=== PATIENT | female | born 1955 | race Caucasian/White ===

== ENCOUNTER 2024-02-10 19:42 | Inpatient (IN) | payer MEDICARE ==
[~2024-02-10] VITALS: Ht 162.6 cm; Wt 55.6 kg
[2024-02-10] MEDS ORDERED: Vancomycin HCL 1,250 MG in NS 250 ML IV ONE (20:25)
[2024-02-10] MEDS ORDERED: FentaNYL Citrate 50 MCG/ML 2 ML Injection IV ONE (20:30)
[2024-02-10] MEDS ORDERED: NS 1,000 ML IV SCH ×3 (20:30→23:20)
[2024-02-10] MEDS ORDERED: Piperacillin/Tazobactam Sod 3.375 GM in NS 100 ML IV ONE (20:30)
[2024-02-10 20:36] LABS: BASOPHILS ABSOLUTE AUTO 0.22 K/mm3 (0.00-0.23); BASOPHILS PERCENT AUTO 0 % (0-2); EOSINOPHILS ABSOLUTE AUTO 0.05 K/mm3 (0.00-0.68); EOSINOPHILS PERCENT AUTO 0 % (0-6); Hematocrit 20.8 % (33.0-51.0); IMMATURE GRAN ABSOLUTE AUTO 1.76 K/mm3 (0.00-0.10); IMMATURE GRAN PERCENT AUTO 3 % (0-1); LYMPHOCYTES ABSOLUTE AUTO 1.27 K/mm3 (0.84-5.20); LYMPHOCYTES PERCENT AUTO 2 % (21-46); MONOCYTES PERCENT AUTO 3 % (4-13); Mean Corpuscular HGB 23.5 pg (26.0-34.0); Mean Corpuscular HGB Conc 27.9 g/dL (31.5-36.5); Mean Corpuscular Volume 84 fL (80-100); Mean Platelet Volume 9.6 fL (9.1-12.4); NEUTROPHILS ABSOLUTE AUTO 58.36 K/mm3 (1.96-9.15); NEUTROPHILS PERCENT AUTO 92 % (41-73); NRBC ABSOLUTE 0.33 K/mm3 (0.00-0.02); NRBC Auto 0.5 /100 WBC (0.0-0.2); Platelet Count 732 K/mm3 (150-400); RDW Coefficient Variation 19.8 % (11.7-14.2); Red Blood Cell Count 2.47 M/mm3 (3.80-5.20)
[2024-02-10 20:41] LABS: Magnesium, Blood 2.8 mg/dL (1.6-2.4)
[2024-02-10 20:47] LABS: Hemoglobin 5.8 g/dL (11.5-16.0); White Blood Cell Count 63.56 K/mm3 (4.00-11.30)
[2024-02-10 20:59] LABS: PCO2 Venous 39.2 mmHg (38-42); pH Blood Venous 7.35 (7.34-7.37)
[2024-02-10 21:00] LABS: Base Excess Venous -3.9 mmol/L; Bicarbonate Venous 21.4 mmol/L (24.0-30.0)
[2024-02-10 21:14] LABS: International Normalized Ratio 1.16; Prothrombin Time Results 12.3 Sec (9.7-11.5)
[2024-02-10] MEDS ORDERED: HYDROmorphone HCl/Pf 1MG SYR IV ONE (22:05)
[2024-02-10] MEDS ORDERED: Ondansetron HCl 2 MG / ML 2ML Vial IV PRN (23:20)
[2024-02-11] VITALS (11 sets, daily range): BP systolic 97–145; BP diastolic 57–98
[2024-02-11 00:17] LABS: Creatinine, Blood 2.55 mg/dL (0.40-1.00)
[2024-02-11] MEDS ORDERED: Morphine Sulfate 4 MG/1 ML Injection IV ONE (01:15)
--- NOTE | 2024-02-11 01:16 | NUR ---
CALLED DR. ASCENCIO FOR PAIN CONTROL PT IS RESTLESS IN BED AND COMPLAINS OF PAIN. ORDER RECEIVED MORPHINE IV 1-4MG X1 FOR PAIN.
[2024-02-11 01:40] LABS: IMMATURE RETIC FRACTION 40.7 % (2.3-16.0); RETIC HGB EQUIVALENT 16.9 pg (28.20-36.60); RETICULOCYTE ABSOLUTE 0.0501 M/mm3 (0.0200-0.1100); RETICULOCYTE COUNT PERCENT 2.14 % (0.50-2.50)
[2024-02-11 01:54] LABS: Percent Saturation 4.2 % (15.0-50.0)
[2024-02-11] MEDS ORDERED: NS 250 ML IV PRN (03:05)
[2024-02-11 03:13] LABS: Influenza A, PCR NEGATIVE (NEGATIVE); Influenza B, PCR NEGATIVE (NEGATIVE); Resp Syncytial Virus, PCR NEGATIVE (NEGATIVE); SARS-Cov-2 (COVID-19) PCR, MMC NEGATIVE (NEGATIVE)
--- NOTE | 2024-02-11 04:21 | NUR ---
RECEIVED PT FROM ED AT 0000 AND ASSUMED CARE. PT TRANSFERED TO BED FROM STRETCHER BY STAFF. PT ON 7L O2 BY NC. PT ARRIVED RESTLESS AND MOANING. SON AT BEDSIDE PROVIDING MOST OF THE HISTORY. PT AOX2, CONFUSED BUT ATTEMPTS TO BE COOPERATIVE. PT APPEARING IN PAIN AT THIS TIME. PT PLACED ON TELEMETRY AND APPEARS TO BE SINUS TACH. LARGE EXTERNAL MASS TO LEFT, ABD PAD PLACED AND WINDOW PANED CLOSED WITH MEDPORE TAPE. PURE-WICK PLACED, IV FLUIDS STARTED, ORAL CARE DONE, COVID SWAB COLLECTED. PT IS NPO AT THIS TIME.
[2024-02-11] MEDS ORDERED: Morphine Sulfate 4 MG/1 ML Injection IV PRN (04:55)
[2024-02-11] MEDS ORDERED: Piperacillin/Tazobactam Sod 4.5 GM in NS 100 ML IV SCH (06:00)
[2024-02-11 08:01] LABS: Hematocrit 25.8 % (33.0-51.0); Hemoglobin 7.4 g/dL (11.5-16.0); LYMPHOCYTES PERCENT AUTO 1 % (21-46); MONOCYTES PERCENT AUTO 3 % (4-13); Mean Corpuscular HGB 24.9 pg (26.0-34.0); Mean Corpuscular HGB Conc 28.7 g/dL (31.5-36.5); Mean Corpuscular Volume 87 fL (80-100); Mean Platelet Volume 9.6 fL (9.1-12.4); NRBC ABSOLUTE 0.34 K/mm3 (0.00-0.02); NRBC Auto 0.5 /100 WBC (0.0-0.2); Platelet Count 556 K/mm3 (150-400); RDW Standard Deviation 56.8 fL (35.1-46.3); Red Blood Cell Count 2.97 M/mm3 (3.80-5.20)
[2024-02-11 08:03] LABS: BASOPHILS ABSOLUTE AUTO 0.03 K/mm3 (0.00-0.23); BASOPHILS PERCENT AUTO 0 % (0-2); EOSINOPHILS ABSOLUTE AUTO 0.01 K/mm3 (0.00-0.68); EOSINOPHILS PERCENT AUTO 0 % (0-6); IMMATURE GRAN ABSOLUTE AUTO 2.25 K/mm3 (0.00-0.10); IMMATURE GRAN PERCENT AUTO 4 % (0-1); NEUTROPHILS PERCENT AUTO 92 % (41-73)
[2024-02-11 08:05] LABS: White Blood Cell Count 65.19 K/mm3 (4.00-11.30)
[2024-02-11 08:41] LABS: Alanine Aminotransfer (ALT/SGP 80 U/L (12-78); Albumin, Blood 1.6 g/dL (3.4-5.0); Albumin/Globulin Ratio 0.4 (0.8-1.8); Alk Phos 298 U/L (50-136); Anion Gap 19 mmol/L (3-11); Aspartate Aminotrans (AST/SGOT 102 U/L (12-37); Bilirubin, Total 0.8 mg/dL (0.1-1.0); Blood Urea Nitrogen 66 mg/dL (8-24); Bun/Creatinine Ratio 32.5 (12.0-20.0); CO2, Blood 17 mmol/L (21-32); Calcium, Blood 8.3 mg/dL (8.5-10.1); Chloride, Blood 111 mmol/L (98-108); Creatinine, Blood 2.03 mg/dL (0.40-1.00); Globulin, Blood 4.1 g/dL (2.2-4.0); Glomerular Filtration Rate 26 (60-); Glucose, Blood 105 mg/dL (70-99); Potassium, Blood 5.5 mmol/L (3.5-5.5); Sodium, Blood 141 mmol/L (136-145); Total Protein, Blood 5.7 g/dL (6.4-8.2); Vancomycin, Random 18.7 ug/mL
[2024-02-11] MEDS ORDERED: Vancomycin HCL 750 MG in NS 250 ML IV ONE (08:50)
[2024-02-11 08:52] LABS: BASOPHILS PERCENT MAN 0 % (0-2); EOSINOPHILS PERCENT MAN 0 % (0-6); LYMPHOCYTES ABSOLUTE MAN 0.65 K/mm3 (0.84-5.20); LYMPHOCYTES PERCENT MAN 1 % (21-46); MONOCYTES ABSOLUTE MAN 0.65 K/mm3 (0.16-1.47); MONOCYTES PERCENT MAN 1 % (4-13); NEUTROPHILS ABSOLUTE MAN 63.88 K/mm3 (1.96-9.15); SEG NEUTROPHILS PERCENT MAN 98 % (41-73); TOTAL CELLS COUNTED 100
[2024-02-11 14:49] LABS: Hematocrit 32.4 % (33.0-51.0); Hemoglobin 9.8 g/dL (11.5-16.0); Mean Corpuscular HGB 26.3 pg (26.0-34.0); Mean Corpuscular HGB Conc 30.2 g/dL (31.5-36.5); Mean Corpuscular Volume 87 fL (80-100); Mean Platelet Volume 9.3 fL (9.1-12.4); NRBC ABSOLUTE 0.38 K/mm3 (0.00-0.02); NRBC Auto 0.6 /100 WBC (0.0-0.2); Platelet Count 474 K/mm3 (150-400); RDW Coefficient Variation 17.4 % (11.7-14.2); RDW Standard Deviation 55.5 fL (35.1-46.3); Red Blood Cell Count 3.72 M/mm3 (3.80-5.20)
[2024-02-11 15:05] LABS: White Blood Cell Count 65.25 K/mm3 (4.00-11.30)
--- NOTE | 2024-02-11 16:03 | NUR ---
GOALS OF CARE MET WITH PT, HER SON OLIVIA, SISTER KIA AND DANIELLE OJEDA. PT IS A/O TO SELF, FAMILY, CONDITION AND LOCATION. SLOW TO RESPOND TO QUESTIONS. SHE IS PAINFULL INSPITE OF REPOSITIONING AND RX MANAGEMENT. LABORED BREATHING WITH 2-3 WORD DYSPNEA. ANXIETY NOTED. SHE WANTS TO REMOVE HER ARMBANDS AND PULLING AT THE CONT PULSE OX. PT AND FAMILY REQUEST STARTING COMFORT CARE UNTIL D/C ON HOSPICE. MSG LEFT FOR DR. BERNSTEIN PRIMARY RN AND NEW HOME SALES CONSULTANT UPDATED. PC RNARNIE WILL F/U WITH PROVIDER FOR ORDERS.
[2024-02-11 16:17] LABS: BAND PERCENT MAN 21 % (0-8); BASOPHILS PERCENT MAN 0 % (0-2); EOSINOPHILS PERCENT MAN 0 % (0-6); LYMPHOCYTES ABSOLUTE MAN 0.65 K/mm3 (0.84-5.20); LYMPHOCYTES PERCENT MAN 1 % (21-46); MONOCYTES ABSOLUTE MAN 2.61 K/mm3 (0.16-1.47); MONOCYTES PERCENT MAN 4 % (4-13); MYELOCYTE PERCENT MAN 2 % (0-0); NEUTROPHILS ABSOLUTE MAN 60.68 K/mm3 (1.96-9.15); SEG NEUTROPHILS PERCENT MAN 72 % (41-73); TOTAL CELLS COUNTED 100
[2024-02-11] MEDS ORDERED: Atropine Sulfate 1% Opth Soln 2ML BTL SL PRN (16:20)
[2024-02-11] MEDS ORDERED: LORazepam 2 MG/ML 1ML Injection IV PRN (16:20)
[2024-02-11] MEDS ORDERED: Morphine Sulfate 20 MG/1ML 1 ML Oral Syringe SL PRN (16:20)
[2024-02-11] MEDS ORDERED: Promethazine HCl 25 MG Supp PR PRN (16:20)
[2024-02-11] MEDS ORDERED: Scopolamine Hydrobromide Patch TOP PRN (16:20)
[2024-02-11] MEDS ORDERED: Acetaminophen 325 MG TABLET PO PRN (16:20)
[2024-02-11] MEDS ORDERED: Promethazine HCl 25 MG Tab PO PRN (16:20)
[2024-02-11] MEDS ORDERED: Acetaminophen 650 MG Supp PR PRN (16:20)
[2024-02-11] MEDS ORDERED: Ondansetron HCl 2 MG / ML 2ML Vial IV PRN (16:20)
[2024-02-11] MEDS ORDERED: LORazepam 1 MG Tab PO PRN (16:20)
--- NOTE | 2024-02-11 18:02 | NUR ---
shift summary- Hector had an overall good day today. Many family members and friends at the bedside today expressing their wishes and desires for her future cares- Hector also involved in decision making with the provider. After many discussions- comfort care orders were given. Hector had minimal urine output all day- was restless all throughout the day, regardless of what pain medication she could have prior to transitioning to comfort care- after second bladder scan this afternoon, hector had 719ml of urine in her bladder, and she was comfortable having an indwelling terrazas catheter placed. She is now resting comfortably with family and friends in the room. currently able to make her needs and wants known. Telemetry removed per comfort care orders.
--- NOTE | 2024-02-12 00:20 | NUR ---
Patient's son at bedside, patient nonverval, unresponsive at this time. PRN roxinol given for air hunger/agonal breathing present. PRN IV ativan given at the beginning of the shift for restlessness, disorientation, pulling at lines. Patient now appears comfortable, breathing even and unlabored, does not respond to voice. Continuing comfort care measures by minimizing interruptions in rest.
--- NOTE | 2024-02-12 01:28 | NUR ---
Patient transferred to medical room 328, sent with all belonings and son Manuel accompanied patient. KUMAR Terrazas given report, no questions or concerns at this time.
[2024-02-12] MEDS ORDERED: Omeprazole 20 MG CapCR PO SCH (06:00)
--- NOTE | 2024-02-12 06:15 | NUR ---
Shift Summary Pt transferred to this unit from PCU. She is comfort care, non-responsive and somnolent. Upon arrival she had some spastic movement, agonal breathing and grunting/moaning during breathing. I gave 1 mg IV Ativan which calmed her spastic movement and then SL Morphine as needed for air hunger. She was able to rest comfortably although still making soft grunting sounds during exhale and also displaying agonal breathing. No secretions heard, lungs are clear. Son is at the bedside.
--- NOTE | 2024-02-12 08:58 | NUR ---
SUPPORTIVE VISIT MET WITH PT'S SON OLVIIA THIS MORNING IN THE [place]. GENTLE EDUCATION ON S/SX OF EOL. VALIDATED HIS FEELINGS AND PROVIDED THERAPUTIC LISTENING.
[2024-02-12] MEDS ORDERED: Lidocaine 4% 1 Patch TOP SCH (09:00)
--- NOTE | 2024-02-12 10:38 | NUR ---
NOTE: DR. KOHLER NOTIFIED OF PT'S AT 1025 ON 02/11. PALLIATIVE PRESENT.
--- NOTE | 2024-02-12 10:39 | NUR ---
NOTE: FAMILY PRESENT AT THE BS AT TIME OF , ARRANGMENTS WILL BE MADE AT THEIR REQUEST.
--- NOTE | 2024-02-12 11:59 | NUR ---
"Spiritual Care | EOL - [facility] After being encouraged by Palliative Care nurse. I Met with family members who were in the hallway. After sharing condolences [facility] was chosen as the [facility]. Family members verbalized gratitude for the spiritual care visit."
--- NOTE | 2024-02-12 13:12 | NUR ---
PT TRANSPORT THE PT WAS PICKED UP BY [facility] PRICE AT THIS TIME. PT TRANSFERED VIA GURNEY
--- NOTE | 2024-02-12 14:02 | NUR ---
SUPPORTIVE VISIT FAMILY AT PT'S BEDSIDE. ASSESSED PT FOR EOL CHANGES. REVIWED SIGNS OF EXPECTED PROGRESSION. ENCOURAGED FAMILY TO TALK WITH PT, VALIDATE HER LIVING LIFE ON HER TERMS AND GIVING PERMISSION TO PASS ON. PT'S SON GOT IN BED NEXT TO HER; SHE PASSED JUST AFTER. TOD: 1025 CONFIRMED WITH 2ND RN, LAYA BERNSTEIN AND IV RN NOTIFIED. FAMILY PROVIDED WITH LIST OF HOMES.
== END 2024-02-12 10:25 | DRG 871 ==
LOC: ER 19:42 → PCU 19:43 → MEDS 02-12 01:27
PROVIDERS: Internal Medicine; Student in an Organized Health Care Education/Training Program; ADMIT Internal Medicine
PROC: 5A0935A Assistance with Respiratory Ventilation, Less than 24 Consecutive Hours, High Flow/Velocity Cannula (ICD-10-PCS; principal; 2024-02-10)
PROC: 3E03329 Introduction of Other Anti-infective into Peripheral Vein, Percutaneous Approach (ICD-10-PCS; 2024-02-10)
PROC: 0T9B70Z Drainage of Bladder with Drainage Device, Via Natural or Artificial Opening (ICD-10-PCS; 2024-02-10)
PROC: 30233N1 Transfusion of Nonautologous Red Blood Cells into Peripheral Vein, Percutaneous Approach (ICD-10-PCS; 2024-02-11)
DX: A41.9 Sepsis, unspecified organism (principal); J18.9 Pneumonia, unspecified organism; J96.01 Acute respiratory failure with hypoxia; D62 Acute posthemorrhagic anemia; E44.0 Moderate protein-calorie malnutrition; N17.9 Acute kidney failure, unspecified; E87.20 Acidosis, unspecified; R64 Cachexia; Z66 Do not resuscitate; Z51.5 Encounter for palliative care; Z99.81 Dependence on supplemental oxygen; R74.01 Elevation of levels of liver transaminase levels; C50.912 Malignant neoplasm of unspecified site of left female breast; R65.20 Severe sepsis without septic shock; D50.9 Iron deficiency anemia, unspecified; R54 Age-related physical debility; R56.9 Unspecified convulsions; I50.9 Heart failure, unspecified; D75.839 Thrombocytosis, unspecified; Z68.22 Body mass index [BMI] 22.0-22.9, adult
CPT/HCPCS: 0241U; 36415; 36430; 71045; 80053; 80202; 82565; 82728; 82803; 83540; 83550; 83605; 83690; 83735; 83880; 84484; 85025; 85045; 85610; 86850; 86900; 86901; 86923; 87040; 87077; 87147; 87186; 93005; 93010; 96365; 96367; 96375; 99285-25; A9270; G0378; J1170; J2060; J2270; J2543; J3010; J3370; J7030; J7050; P9016